=== PATIENT | male | born 1980 | race Two or more races ===

== ENCOUNTER 2020-11-28 10:51 | Inpatient (IN) | payer MEDICAID ==
[~2020-11-28] VITALS: Ht 170.2 cm; Wt 95.4 kg
--- NOTE | 2020-11-28 10:57 | NUR ---
[facility] from [facility] where pt called 911 for sharp, constant abdominal pain radiating to back with n/v. Started last night. No fever, no chills. 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 Medics gave 5mg Morphine and 4mg Zofran ODT en route. 20ga LAC Allg: ASA no covid vaccine
[2020-11-28] MEDS ORDERED: SODIUM CHLORIDE FLUSH 10ML SYR IVF ONE (11:30)
--- NOTE | 2020-11-28 11:51 | NUR ---
Lab drawing blood, requested urine from pt provided urinal.
--- NOTE | 2020-11-28 12:02 | NUR ---
Back from xray. Still waiting for urine sample.
[2020-11-28 12:05] LABS: MEAN PLATELET VOLUME 7.1 fL (7.4-10.4); PLATELET COUNT 336 x10^3/uL (130-400); RED BLOOD COUNT 5.11 x10^6/uL (4.38-5.82); RED CELL DISTRIBUTION WIDTH 14.2 % (9.4-14.8)
[2020-11-28 12:16] LABS: ALBUMIN 3.2 g/dL (3.4-5.0); ANION GAP 8 mmol/L (5-15); CALCIUM 8.3 mg/dL (8.5-10.1); CHLORIDE 104 mmol/L (98-107)
[2020-11-28 12:22] LABS: ALANINE AMINOTRANSFERASE 29 U/L (12-78); ALKALINE PHOSPHATASE 90 U/L (45-117); BILIRUBIN,TOTAL 1.3 mg/dL (0.2-1.0); CREATININE 0.79 mg/dL (0.7-1.3); TOTAL PROTEIN 7.1 g/dL (6.4-8.2); TROPONIN I < 0.015 ng/mL (0.000-0.045)
[2020-11-28 12:28] LABS: BAND#(MANUAL) 1.25 x10^3/uL; BANDS%(MANUAL) 13 % (0-7); BASOS% (MANUAL) 1 % (0-1); LYMPHS% (MANUAL) 1 % (22-44); MONOS% (MANUAL) 1 % (2-9); SEG#(MANUAL) 8.06 x10^3/uL (1.8-6.8); SEGS% (MANUAL) 84 % (42-75)
[2020-11-28 12:29] LABS: <PLATELET ESTIMATE> ADEQUATE; <PLT MORPHOLOGY> NORMAL PLT MORPH; <RBC MORPHOLOGY> NORMAL
--- NOTE | 2020-11-28 12:33 | NUR ---
TASK RN: PT UNABLE TO PROVIDE URINE SAMPLE AT THIS TIME.
[2020-11-28] MEDS ORDERED: OMNIPAQUE 350 MG/ML, 100ML BOTTLE ONE (13:00)
--- NOTE | 2020-11-28 13:04 | NUR ---
Pt to CT via [facility].
--- NOTE | 2020-11-28 13:29 | NUR ---
Report per CT that approx 20ml CT contrast infiltrated during admin through LAC line. Ice pack applied, informed .
--- NOTE | 2020-11-28 14:13 | NUR ---
Urine collected and sent to lab. CT back pt to be admitted for partial SBO. VSS, NPO
[2020-11-28 14:25] LABS: MICROSCOPIC NOT IND
--- NOTE | 2020-11-28 14:58 | NUR ---
Hospitalist at bedside, pt agrees to be admitted. Will restart his IV, prepare for admission. VSS
[2020-11-28] MEDS ORDERED: LORazepam 2 MG/ML, 1ML IVPush PRN (15:00)
[2020-11-28] MEDS ORDERED: hydrALAzine 20 MG/ML, 1ML IVPush PRN (15:00)
[2020-11-28] MEDS ORDERED: ONDANSETRON 2MG/ML, 2ML IVPush PRN (15:00)
[2020-11-28] MEDS ORDERED: PROMETHAZINE 25 MG/ML, 1ML IM PRN (15:00)
[2020-11-28] MEDS ORDERED: OXYcodone IR 5MG TABLET PO PRN (15:00)
[2020-11-28] MEDS ORDERED: ONDANSETRON ODT 4 MG PO PRN (15:00)
[2020-11-28] MEDS: SODIUM CHLORIDE 0.9% 1,000 ML IV SCH ×2 (15:00→23:42)
[2020-11-28] MEDS ORDERED: morphine SULFATE 10 MG/ML, 1ML IVPush PRN (15:00)
[2020-11-28] MEDS ORDERED: TEMAZEPAM 15 MG CAPSULE PO PRN (15:00)
[2020-11-28] MEDS ORDERED: ENALAPRILAT 1.25 MG/ML, 2ML IVPush PRN (15:00)
[2020-11-28] MEDS ORDERED: MORPHINE SULFATE 4 MG/ML, 1ML ONE (15:57)
--- NOTE | 2020-11-28 16:00 | NUR ---
IV restarted, NS 100/hr to gravity, pt c/o increase in pain medicated with 4mg morphine IV. Waiting for med/surg bed. No n/v/d while here in ED/
--- NOTE | 2020-11-28 16:37 | NUR ---
x2 attempt to call report unsuccessful throughput informed of delay.
[2020-11-28 17:53] VITALS: BP 123/76
[2020-11-28 20:49] VITALS: BP 128/85
[2020-11-29 02:50] VITALS: BP 122/77
[2020-11-29] MEDS: ACETAMINOPHEN 325 MG TABLET PO PRN ×3 (05:59→22:07)
[2020-11-29 06:06] LABS: BASOPHILS % (AUTO) 0 % (0-1); EOSINOPHILS % (AUTO) 7 % (1-7); LYMPHOCYTES % (AUTO) 22 % (22-44); MEAN CORPUSCULAR HEMOGLOBIN 27.5 pg (27.5-34.5); MEAN CORPUSCULAR HGB CONC 33.4 g/dL (33.2-36.2); MEAN PLATELET VOLUME 7.2 fL (7.4-10.4); MONOCYTES % (AUTO) 8 % (2-9); NEUTROPHILS % (AUTO) 63 % (42-75); PLATELET COUNT 311 x10^3/uL (130-400); RED BLOOD COUNT 4.92 x10^6/uL (4.38-5.82); RED CELL DISTRIBUTION WIDTH 14.1 % (9.4-14.8)
[2020-11-29 06:13] LABS: ALBUMIN 2.7 g/dL (3.4-5.0); ANION GAP 7 mmol/L (5-15); CHLORIDE 103 mmol/L (98-107)
[2020-11-29 06:19] LABS: ALANINE AMINOTRANSFERASE 25 U/L (12-78); ALKALINE PHOSPHATASE 79 U/L (45-117); CREATININE 0.96 mg/dL (0.7-1.3); TOTAL PROTEIN 6.5 g/dL (6.4-8.2)
[2020-11-29 07:23] VITALS: BP 130/70
[2020-11-29] MEDS: SODIUM CHLORIDE 0.9% 1,000 ML IV SCH ×2 (10:35→21:00)
[2020-11-29 13:05] VITALS: BP 128/76
[2020-11-29 20:31] VITALS: BP 149/80
[2020-11-30 03:21] VITALS: BP 129/78
[2020-11-30 06:10] LABS: CHLORIDE 107 mmol/L (98-107)
[2020-11-30 06:27] LABS: ALANINE AMINOTRANSFERASE 24 U/L (12-78); ALBUMIN 2.6 g/dL (3.4-5.0); ALKALINE PHOSPHATASE 73 U/L (45-117); ANION GAP 5 mmol/L (5-15); BILIRUBIN,TOTAL 0.4 mg/dL (0.2-1.0); CALCIUM 8.3 mg/dL (8.5-10.1); CREATININE 0.84 mg/dL (0.7-1.3); TOTAL PROTEIN 6.4 g/dL (6.4-8.2)
[2020-11-30 07:27] VITALS: BP 124/72
[2020-11-30] MEDS: SODIUM CHLORIDE 0.9% 1,000 ML IV SCH (09:38)
[2020-11-30 13:40] VITALS: BP 159/71
[2020-11-30 17:23] VITALS: BP 148/87
== END 2020-11-30 17:28 | disposition home or self-care (01) | DRG 282 ==
LOC: ED 14:35 → EDIP 14:48 → SUATTDRO 14:51 → 4NE 17:06
PROVIDERS: ADMIT Hospitalist; ATTEND Internal Medicine
DX: K85.00 Idiopathic acute pancreatitis without necrosis or infection (principal); K56.7 Ileus, unspecified; A05.9 Bacterial foodborne intoxication, unspecified; D72.825 Bandemia; F11.10 Opioid abuse, uncomplicated; F10.10 Alcohol abuse, uncomplicated; F15.10 Other stimulant abuse, uncomplicated; F17.210 Nicotine dependence, cigarettes, uncomplicated; R74.8 Abnormal levels of other serum enzymes; Y90.9 Presence of alcohol in blood, level not specified; K52.9 Noninfective gastroenteritis and colitis, unspecified; Z79.899 Other long term (current) drug therapy
CPT/HCPCS: 36415; 74022; 74177; 80053; 81003; 83605; 83690; 83735; 84100; 84484; 85025; 93005; 96374; G0378; Q9967; J2270; J7030